=== PATIENT | female | born 1935 | race Caucasian/White ===

== ENCOUNTER 2017-04-20 13:45 | Emergency (ER) | payer OTHER, MEDICAID ==
[2017-04-20 14:30] LABS: BASOPHIL % 0.5 % (0-2); PLATELET COUNT 135 x10^3mcL (130-400)
[2017-04-20 14:43] LABS: CALCIUM 8.8 mg/dL (8.5-10.1); CHLORIDE SERUM 104 mmol/L (98-107); CREATININE SERUM 1.4 mg/dL (0.6-1.0); GLUCOSE SERUM 144 mg/dL (74-106); POTASSIUM SERUM 4.1 mmol/L (3.5-5.1); SODIUM SERUM 138 mmol/L (136-145)
[2017-04-20 14:48] LABS: ALKALINE PHOSPHATASE 119 U/L (46-116); ALT/SGPT 30 U/L (14-59); AST/SGOT 28 U/L (15-37); BILIRUBIN TOTAL 0.5 mg/dL (0.20-1.00); TOTAL PROTEIN, SERUM 6.8 g/dL (6.4-8.2)
[2017-04-20 14:50] LABS: ALBUMIN 3.2 g/dL (3.4-5.0)
[2017-04-20 15:12] LABS: UA SPECIFIC GRAVITY 1.025 (1.005-1.035); microscopic required? YES; urine erythrocyte NEGATIVE (NEGATIVE)
[2017-04-20 17:01] VITALS: BP 133/81
== END 2017-04-20 17:15 | disposition home or self-care (01) ==
LOC: ED 13:45
PROVIDERS: Emergency Medicine
DX: J20.9 Acute bronchitis, unspecified (principal); M54.6 Pain in thoracic spine; I10 Essential (primary) hypertension; E11.9 Type 2 diabetes mellitus without complications; E78.00 Pure hypercholesterolemia, unspecified; Z79.84 Long term (current) use of oral hypoglycemic drugs; Z79.899 Other long term (current) drug therapy
CPT/HCPCS: 36600; 83880; J0696; J2405; J7030; J7620; Q9967

== ENCOUNTER 2017-12-31 14:00 | Inpatient (IN) | payer OTHER, MEDICAID ==
[~2017-12-31] VITALS: Ht 154.9 cm; Wt 90.0 kg
[2017-12-31 14:04] VITALS: Ht 154.9 cm; Wt 90.0 kg
[2017-12-31 14:43] LABS: BASOPHIL % 0.2 % (0-2); PLATELET COUNT 137 x10^3mcL (130-400); RED CELL DISTRIBUTION WIDTH 13.7 % (11.5-14.5)
[2017-12-31 15:00] LABS: CALCIUM 8.5 mg/dL (8.5-10.1); CARBON DIOXIDE 25.1 mmol/L (21-32); CHLORIDE SERUM 104 mmol/L (98-107); CREATININE SERUM 1.2 mg/dL (0.6-1.0); GLUCOSE SERUM 111 mg/dL (74-106); SODIUM SERUM 135 mmol/L (136-145)
[2017-12-31 15:04] LABS: ALKALINE PHOSPHATASE 108 U/L (46-116); ALT/SGPT 36 U/L (14-59); AMYLASE 78 U/L (25-115); AST/SGOT 28 U/L (15-37); BILIRUBIN TOTAL 0.3 mg/dL (0.20-1.00); LIPASE 139 IU/L (73-393); TOTAL PROTEIN, SERUM 6.7 g/dL (6.4-8.2)
[2017-12-31 15:05] LABS: ALBUMIN 3.1 g/dL (3.4-5.0)
[2017-12-31] MEDS ORDERED: MYS50 PO (15:56)
[2017-12-31 16:28] LABS: UA SPECIFIC GRAVITY 1.025 (1.005-1.035); microscopic required? YES; urine erythrocyte NEGATIVE (NEGATIVE)
[2017-12-31 17:02] VITALS: BP 138/75
[2017-12-31 17:08] LABS: MAGNESIUM 2.1 mg/dL (1.8-2.4); PHOSPHOROUS 2.4 mg/dL (2.5-4.9); T3 TOTAL 0.72 ng/mL
[2017-12-31 17:10] LABS: FREE T4 1.55 ng/dL (0.76-1.46); FREE THYROXINE INDEX 4.2 ug/dL (1.4-4.5); T4(THYROXINE) 12.1 ug/dL (4.7-13.3)
[2017-12-31] MEDS ORDERED: CARVEDILOL3.125 M1 PO (18:42)
[2017-12-31] MEDS ORDERED: LEVOTHYROXIN0.175 MG PO (18:43)
[2017-12-31] MEDS ORDERED: LIPI20 PO (18:44)
[2017-12-31] MEDS ORDERED: GABAPENTIN100 M2 PO (18:45)
[2017-12-31] MEDS ORDERED: DIOVAN160 MG PO ×2 (18:46→18:47)
[2017-12-31] MEDS ORDERED: FLUOXETINE HYDR20 M2 PO (18:48)
[2017-12-31] MEDS ORDERED: HYDROCHLOROTH12.5 M2 PO (18:48)
[2017-12-31] MEDS ORDERED: METFORMIN HCL500 MG PO (18:50)
[2017-12-31] MEDS ORDERED: VITD PO (18:52)
[2017-12-31] MEDS ORDERED: SPIRIVA18 MC1 INH (18:53)
[2017-12-31 21:02] VITALS: BP 134/65
[2018-01-01 06:07] VITALS: BP 137/87
[2018-01-01 07:22] LABS: BASOPHIL % 0.3 % (0-2); RED CELL DISTRIBUTION WIDTH 13.7 % (11.5-14.5)
[2018-01-01 07:30] LABS: PLATELET COUNT 117 x10^3mcL (130-400)
[2018-01-01 07:51] LABS: CALCIUM 8.2 mg/dL (8.5-10.1); CARBON DIOXIDE 22.1 mmol/L (21-32); CHLORIDE SERUM 104 mmol/L (98-107); CREATININE SERUM 1.2 mg/dL (0.6-1.0); GLUCOSE SERUM 91 mg/dL (74-106); MAGNESIUM 1.9 mg/dL (1.8-2.4); PHOSPHOROUS 2.4 mg/dL (2.5-4.9); POTASSIUM SERUM 4.1 mmol/L (3.5-5.1); SODIUM SERUM 136 mmol/L (136-145)
[2018-01-01 09:55] VITALS: BP 124/58
[2018-01-01] MEDS ORDERED: EPZICOM1 TAB (10:22)
[2018-01-01] MEDS ORDERED: MYS50 PO (10:22)
[2018-01-01 13:54] VITALS: BP 135/65
[2018-01-01 17:25] VITALS: BP 136/69
[2018-01-01 17:32] LABS: RED CELL DISTRIBUTION WIDTH 13.3 % (11.5-14.5)
[2018-01-01 17:34] LABS: BASOPHIL % 0 % (0-2); PLATELET COUNT 127 x10^3mcL (130-400)
[2018-01-01 17:44] LABS: CALCIUM 7.8 mg/dL (8.5-10.1); CARBON DIOXIDE 24.1 mmol/L (21-32); CHLORIDE SERUM 107 mmol/L (98-107); CREATININE SERUM 1.3 mg/dL (0.6-1.0); GLUCOSE SERUM 111 mg/dL (74-106); POTASSIUM SERUM 4.1 mmol/L (3.5-5.1); SODIUM SERUM 136 mmol/L (136-145)
[2018-01-01 21:49] VITALS: BP 131/62
[2018-01-02 05:36] VITALS: BP 114/56
[2018-01-02 07:05] LABS: BASOPHIL % 0.3 % (0-2); RED CELL DISTRIBUTION WIDTH 13.6 % (11.5-14.5)
[2018-01-02 07:06] LABS: PLATELET COUNT 127 x10^3mcL (130-400)
[2018-01-02 07:49] LABS: CALCIUM 7.8 mg/dL (8.5-10.1); CARBON DIOXIDE 22.9 mmol/L (21-32); CHLORIDE SERUM 106 mmol/L (98-107); CREATININE SERUM 1.3 mg/dL (0.6-1.0); GLUCOSE SERUM 135 mg/dL (74-106); MAGNESIUM 1.9 mg/dL (1.8-2.4); POTASSIUM SERUM 3.6 mmol/L (3.5-5.1); SODIUM SERUM 134 mmol/L (136-145)
[2018-01-02 08:37] VITALS: BP 110/56
[2018-01-02 13:12] VITALS: BP 141/74
[2018-01-02 18:01] VITALS: BP 109/50
[2018-01-02 21:10] VITALS: BP 114/54
[2018-01-03 05:47] VITALS: BP 113/44
[2018-01-03 06:13] LABS: CALCIUM 8.1 mg/dL (8.5-10.1); CARBON DIOXIDE 24.4 mmol/L (21-32); CHLORIDE SERUM 109 mmol/L (98-107); CREATININE SERUM 1.4 mg/dL (0.6-1.0); GLUCOSE SERUM 103 mg/dL (74-106); SODIUM SERUM 141 mmol/L (136-145)
[2018-01-03 06:24] LABS: BASOPHIL % 0.2 % (0-2); PLATELET COUNT 130 x10^3mcL (130-400); RED CELL DISTRIBUTION WIDTH 13.9 % (11.5-14.5)
[2018-01-03 08:57] VITALS: BP 143/67
[2018-01-03] MEDS ORDERED: FLA500 PO (10:28)
[2018-01-03] MEDS ORDERED: CIPRO500 MG PO (10:28)
[2018-01-03] MEDS ORDERED: BD LACTINEX1.4 MG PO (10:29)
[2018-01-03] MEDS ORDERED: XARELTO10 M1 PO (10:44)
[2018-01-03 11:30] VITALS: BP 143/67
[2018-01-03 12:37] VITALS: BP 123/60
== END 2018-01-03 14:00 | disposition home health service (06) | DRG 391 ==
LOC: ED 14:00 → DU 15:43 → MU 01-03 07:43
PROVIDERS: Family Medicine; Specialist; Student in an Organized Health Care Education/Training Program
DX: K57.92 Diverticulitis of intestine, part unspecified, without perforation or abscess without bleeding (principal); N17.0 Acute kidney failure with tubular necrosis; K86.2 Cyst of pancreas; I82.431 Acute embolism and thrombosis of right popliteal vein; N39.0 Urinary tract infection, site not specified; E44.0 Moderate protein-calorie malnutrition; E87.1 Hypo-osmolality and hyponatremia; E11.65 Type 2 diabetes mellitus with hyperglycemia; E03.9 Hypothyroidism, unspecified; I10 Essential (primary) hypertension; F32.9 Major depressive disorder, single episode, unspecified; Z68.33 Body mass index [BMI] 33.0-33.9, adult
CPT/HCPCS: 82962; 83880; 84439; 97110-GP; 97116-GP; 97530-GP; C9113; J0696; J1644; J1885; J3010; J3490; J7030; J7040; J7042; Q0092; Q0162

== ENCOUNTER 2018-04-14 18:28 | Emergency (ER) | payer OTHER, MEDICAID ==
[~2018-04-14] VITALS: Ht 162.6 cm; Wt 86.2 kg
[~2018-04-14 18:28] MED LIST: BD LACTINEX1.4 MG PO; CARVEDILOL3.125 M1 PO; CIPRO500 MG PO; DIOVAN160 MG PO; EPZICOM1 TAB; FLA500 PO; FLUOXETINE HYDR20 M2 PO; GABAPENTIN100 M2 PO; HYDROCHLOROTH12.5 M2 PO; LEVOTHYROXIN0.175 MG PO; LIPI20 PO; METFORMIN HCL500 MG PO; MYS50 PO; SPIRIVA18 MC1 INH; VITD PO; XARELTO10 M1 PO
[2018-04-14 18:35] VITALS: Ht 162.6 cm; Wt 86.2 kg
[2018-04-14 19:47] LABS: BASOPHIL % 0.2 % (0-2); PLATELET COUNT 131 x10^3mcL (130-400); RED CELL DISTRIBUTION WIDTH 13.9 % (11.5-14.5)
[2018-04-14 19:53] LABS: CALCIUM 8.6 mg/dL (8.5-10.1); CARBON DIOXIDE 28.1 mmol/L (21-32); CHLORIDE SERUM 105 mmol/L (98-107); CREATININE SERUM 1.7 mg/dL (0.6-1.0); GLUCOSE SERUM 106 mg/dL (74-106); SODIUM SERUM 136 mmol/L (136-145)
[2018-04-14 19:59] LABS: ALKALINE PHOSPHATASE 144 U/L (46-116); ALT/SGPT 41 U/L (14-59); AST/SGOT 34 U/L (15-37); BILIRUBIN TOTAL 0.16 mg/dL (0.20-1.00); CHOLESTEROL 135 mg/dL (<200); CHOLESTEROL/HDL RATIO 2.5; HDL CHOLESTEROL 55 mg/dL (40-60); LIPASE 259 IU/L (73-393); TOTAL PROTEIN, SERUM 6.2 g/dL (6.4-8.2); TRIGLYCERIDES 142 mg/dL (<150)
[2018-04-14 21:06] LABS: microscopic required? YES; urine erythrocyte NEGATIVE (NEGATIVE)
[2018-04-14 23:25] VITALS: BP 152/83
== END 2018-04-14 23:25 | disposition home or self-care (01) ==
LOC: ED 18:28
PROVIDERS: Specialist
DX: R10.31 Right lower quadrant pain (principal); I10 Essential (primary) hypertension; E11.9 Type 2 diabetes mellitus without complications; Z90.49 Acquired absence of other specified parts of digestive tract
CPT/HCPCS: 83880; J0295; J1885; J3010; J3490; J7030; Q0092

== ENCOUNTER 2019-05-18 14:26 | Emergency (ER) | payer OTHER, MEDICAID ==
[~2019-05-18] VITALS: Ht 165.1 cm; Wt 91.6 kg
[2019-05-18 14:39] VITALS: Ht 165.1 cm; Wt 91.6 kg
[2019-05-18 16:07] LABS: BASOPHIL % 0.4 % (0-2); PLATELET COUNT 157 x10^3mcL (130-400); RED CELL DISTRIBUTION WIDTH 13.9 % (11.5-14.5)
[2019-05-18 16:12] LABS: CALCIUM 7.9 mg/dL (8.5-10.1); CARBON DIOXIDE 24.9 mmol/L (21-32); CHLORIDE SERUM 102 mmol/L (98-107); CREATININE SERUM 1.5 mg/dL (0.6-1.0); GLUCOSE SERUM 126 mg/dL (74-106); POTASSIUM SERUM 4.7 mmol/L (3.5-5.1); SODIUM SERUM 140 mmol/L (136-145)
[2019-05-18 16:16] LABS: ALKALINE PHOSPHATASE 123 U/L (46-116); ALT/SGPT 22 U/L (14-59); AST/SGOT 23 U/L (15-37); BILIRUBIN TOTAL 0.1 mg/dL (0.20-1.00); TOTAL PROTEIN, SERUM 6.5 g/dL (6.4-8.2)
[2019-05-18 16:18] LABS: ALBUMIN 2.9 g/dL (3.4-5.0)
[2019-05-18 16:45] LABS: microscopic required? NO
[2019-05-18 16:56] LABS: urine erythrocyte NEGATIVE (NEGATIVE)
[2019-05-18 20:00] VITALS: BP 128/87
== END 2019-05-18 20:00 | disposition home or self-care (01) ==
LOC: ED 14:26
PROVIDERS: Emergency Medicine
DX: L03.116 Cellulitis of left lower limb (principal); R22.43 Localized swelling, mass and lump, lower limb, bilateral; I10 Essential (primary) hypertension; E11.9 Type 2 diabetes mellitus without complications; Z90.89 Acquired absence of other organs; Z90.49 Acquired absence of other specified parts of digestive tract
CPT/HCPCS: 83880; J0696; J1885; J1940; J7060; Q0092